=== PATIENT | female | born 1950 | race Caucasian/White ===

== ENCOUNTER → 2021-01-04 06:59 | Outpatient (CLI) | payer MEDICARE, OTHER, SELFPAY ==
--- NOTE | 2021-01-04 | DI.MRI.S_ITS ---
PROCEDURE: MR KNEE RT WO CON INDICATIONS: Unspecified injury of right lower leg, initial encounter TECHNIQUE: Noncontrast sagittal PD fast spin echo and T2 fast spin echo with fat saturation, sagittal 3-D FLASH with fat saturation; coronal T1 spin echo and PD fast spin echo with fat saturation, and axial PD fast spin echo with fat saturation through the knee. COMPARISON: None. FINDINGS: Image quality: Excellent. Menisci: There is oblique tear of the medial meniscus involving the posterior horn and body extending to the inferior articular surface. There is mild intrasubstance degeneration of the lateral meniscus without khari meniscal tear. The meniscal root ligaments appear intact. Cruciate ligaments: The anterior and posterior cruciate ligaments appear intact. Medial structures: The medial collateral ligament appears intact. The posterior oblique ligament, semimembranosus tendon insertions, oblique popliteal ligament, and meniscocapsular junction appear intact. Visualized portions of the pes anserinus tendons appear normal. No abnormal bursal fluid. Lateral structures: The lateral collateral ligament, long and short heads of the biceps femoris tendon appear intact. The popliteus tendon appears normal; the popliteofibular ligament appears intact. The posterosuperior and anteroinferior popliteomeniscal fascicles appear intact. The arcuate and fabellofibular ligaments appear intact, on either side of the lateral inferior geniculate artery. Iliotibial band appears normal. Anterior structures: The quadriceps and patellar tendons appear intact. Patellar alignment is normal. No femoral trochlear dysplasia or ventral trochlear prominence. No edema in the infrapatellar fat pad. Bones and cartilage: No bone marrow contusions or fractures. Severe chondromalacia patella. Mild cartilage thinning and fibrillation of the medial and lateral femorotibial compartment. Joint space: There is moderate knee joint effusion. There is a small Bull's cyst. Normal appearing synovial plicae are incidentally noted. IMPRESSION: 1. Oblique tear of the posterior horn and body of the medial meniscus. 2. Mild intrasubstance degeneration of the lateral meniscus without meniscal tear. 3. Severe chondral malacia patella. There is also mild cartilage thinning and fibrillation of the patellofemoral joint. 4. Moderate knee joint effusion. 5. Small Bull's cyst. Dictated by: Tye English M.D. on 01/04/2021 at 9:59 Approved by: Tye English M.D. on 01/04/2021 at 10:06
== END ==
PROVIDERS: PCP Internal Medicine; Referring Provider Internal Medicine; Visit Provider Internal Medicine
DX: S89.91XA Unspecified injury of right lower leg, initial encounter (principal); S83.241A Other tear of medial meniscus, current injury, right knee, initial encounter; M22.41 Chondromalacia patellae, right knee; M25.461 Effusion, right knee; M71.21 Synovial cyst of popliteal space [Baker], right knee; X58.XXXA Exposure to other specified factors, initial encounter
CPT/HCPCS: 73721

== ENCOUNTER → 2021-01-11 15:03 | Outpatient (CLI) | payer MEDICARE, OTHER, SELFPAY ==
--- NOTE | 2021-01-11 15:05 | DI.US.S_ITS ---
PROCEDURE: US PERIPH VENOUS LOW EXTREM RT INDICATIONS: RULE OUT DEEP VEIN THROMBOSIS POPLITEAL TECHNIQUE: Real-time imaging, as well as color and pulse Doppler interrogation, were performed of the lower extremity deep veins from the inguinal ligament to the popliteal fossa. COMPARISON: [facility], MR, MR KNEE RT WO CON, 01/04/2021, 7:36. FINDINGS: The common femoral, femoral and popliteal veins are normally compressible, and free of intraluminal thrombus. Color and pulse Doppler demonstrate normal phasic intraluminal flow. There is normal augmentation response to distal compression maneuver. On review of the prior MRI an area of fusiform enlargement of the popliteal vein at a valve was identified. The smaller immediately adjacent popliteal artery is normal in caliber without aneurysm. Incidental note is made of a small popliteal fossa posterior medial Bull's cyst. IMPRESSION: A fusiform region of mild dilatation of the popliteal vein at a vein valve is present, as seen on MR scanning 01/04/21. The adjacent smaller anterior popliteal artery is normal in caliber without aneurysm or thrombosis. No DVT found. Small Bull cyst incidentally noted at the posterior medial knee. Dictated by: Koby Handy M.D. on 01/11/2021 at 17:15 Approved by: Koby Handy M.D. on 01/11/2021 at 17:19
== END ==
PROVIDERS: PCP Internal Medicine; Referring Provider Student in an Organized Health Care Education/Training Program; Visit Provider Student in an Organized Health Care Education/Training Program
DX: I82.431 Acute embolism and thrombosis of right popliteal vein (principal); M71.21 Synovial cyst of popliteal space [Baker], right knee
CPT/HCPCS: 93971